=== PATIENT | female | born 1935 | race Caucasian/White ===

== ENCOUNTER 2016-08-20 20:51 | Emergency (ER) | payer MEDICARE, OTHER ==
[2016-08-20 22:49] LABS: BASO # 0.1 10_X3_uL (0.0-0.1); BASO % 1.1 % (0.1-1.2); EOS # 0.3 10_X3_uL (0.0-0.4); EOS % 3.5 % (0.7-5.8); GRAN # 5.9 10_X3_uL (1.6-6.1); GRAN % 73.1 % (34.0-71.1); HEMATOCRIT 34.4 % (34-45); HEMOGLOBIN 11.3 g/dL (11.2-15.7); LYMPH # 1.3 10_X3_uL (1.2-3.7); LYMPH % 15.9 % (19.3-51.7); MEAN CORPUSCULAR HEMOGLOBIN 29.5 pg (27.0-33.0); MEAN CORPUSCULAR HGB CONC 32.8 g/dL (32.0-36.0); MEAN CORPUSCULAR VOLUME 89.8 fL (79-95); MONO # 0.5 10_X3_uL (0.2-0.9); MONO % 6.4 % (4.7-12.5); PLATELET COUNT 192 x10_3/uL (182-369); RED BLOOD COUNT 3.83 x10_6/uL (3.9-5.2); RED CELL DISTRIBUTION WIDTH 14.1 % (11.7-14.4); WHITE BLOOD COUNT 8.1 x10_3/uL (4.0-10.0)
[2016-08-20 23:37] LABS: CALCIUM 9.2 mg/dL (8.7-10.7); CREATININE 1.5 mg/dL (0.6-1.3); MAGNESIUM 1.7 mg/dL (1.8-2.4); POTASSIUM 4.6 mmol/L (3.5-5.1)
== END 2016-08-20 23:58 | disposition home or self-care (01) ==
LOC: ER 20:51
PROVIDERS: Internal Medicine
DX: L97.529 Non-pressure chronic ulcer of other part of left foot with unspecified severity (principal); Z79.82 Long term (current) use of aspirin; Z79.899 Other long term (current) drug therapy; Z79.891 Long term (current) use of opiate analgesic; Z88.8 Allergy status to other drugs, medicaments and biological substances
CPT/HCPCS: 36415; 80048; 83735; 85025; 96372; 99070; 99283; 99283-25